=== PATIENT | female | born 1945 | race Caucasian/White ===

== ENCOUNTER 2024-11-10 10:54 | Emergency (ER) | payer OTHER, SELFPAY ==
[2024-11-10 11:06] VITALS: BP 113/60
--- NOTE | 2024-11-10 11:39 | ED.GENMED ---
History of Present Illness
General
Chief Complaint: Fainting Sensation
Source: patient
Exam Limitations: none
Time Seen by Provider: 11/10/24 11:30
History of Present Illness
History of Present Illness:
See MDM
Past History
Past History
ED Past Medical History: Arrthythmia and HTN
ED Past Surgical History: Cardiac
Social History
Tobacco: Non-smoker
Alcohol: None
Drug: None
Personal:
Employment: Employed
Phy Exam
Physical Exam
Physical Exam:
See MDM
Course
Orders/Labs/Results
Orders:
Orders
11/10/24 11:08
Electrocardiogram (*1) Urgent
Reason for Study: Syncope
11/10/24 11:09
EKG- Treatment ONCE
11/10/24 11:38
0.9% Sodium Chloride 1000 ml [Nss] 1,000 ml IV BOLUS
11/10/24 11:54
Complete Blood Count/With Diff Urgent
Comprehensive Metabolic Panel Urgent
Abnormal Lab Results
11/10/24
11:54
RBC 4.10 L 10^6/uL
(4.20-5.40)
Hct 34.9 L %
(37.0-47.0)
Absolute Lymphs (auto) 1.0 L 10^3/uL
(1.2-3.4)
Lymphocytes % 18.1 L %
(20.5-51.1)
Monocytes % 10.1 H %
(1.7-9.3)
Sodium 131 L mmol/L
(135-145)
Chloride 95 L mmol/L
(98-107)
BUN 30 H mg/dl
(7-17)
Creatinine 1.3 H mg/dL
(0.6-1.0)
Glucose 131 H mg/dl
(70-99)
Total Protein 6.1 L g/dl
(6.3-8.2)
11/10/24 11:54
11/10/24 11:54
Vital Signs
Initial and Last Documented VS:
Initial Vital Signs
Temp Pulse Resp BP Pulse Ox
98.2 F 62 16 113/60 98
11/10/24 11:06 11/10/24 11:06 11/10/24 11:06 11/10/24 11:06 11/10/24 11:06
Last Documented Vital Signs
Temp Pulse Resp BP Pulse Ox
98.2 F 62 16 113/60 98
11/10/24 11:06 11/10/24 11:06 11/10/24 11:06 11/10/24 11:06 11/10/24 11:06
MDM/Problems Addressed
Differential Diagnosis Includes:
HPI and MDM Narrative:
78-year-old female presenting for syncopal event. Patient was recently diagnosed with the flu. She has been tired and fatigued and has had multiple loose stools. Due to her fatigue, patient does acknowledge that she has not been eating or
drinking appropriately. Patient felt tired show she laid her head down and she passed out. She is feeling better but does acknowledge that she believes this is a fluid issue. She went to urgent care and was directed to the emergency department
for further evaluation. On my exam, she is clinically dry. She is in no acute distress. Heart regular rate and rhythm. No leg edema or tenderness.
EKG shows sinus rhythm. Will give IV fluids and continue to reassess
Physical exam
General: Well appearing and non-toxic
HEENT: protecting airway. Dry mucous membranes
Neck: appears supple
CV: No evidence of cyanosis. Regular rate and rhythm
Resp: No accessory muscle use
Abd: Non-distended
Extremities: No deformities. No leg edema or tenderness
Neuro: alert
Psych: Normal affect
Skin: Intact
Problems Addressed including Acute and Chronic Conditions affecting care:
1. Syncope
Acuity: acute
Prognosis: stable
Details: Likely in the setting of dehydration and orthostasis. Will give IV fluids continue to reassess. EKG shows sinus rhythm
Updates
Patient has mild elevation in BUN with a low sodium and low chloride consistent with dehydration. Patient feeling better after IV fluids
Differential Diagnosis (but not limited to): Syncope, dehydration, orthostasis, cardiac rhythm
Testing considered: Troponin but she denies chest pain or shortness of breath and EKG is nonischemic
Drug therapy (if applicable): OTC meds, please see d/c instruction regarding Rx drugs
Amount and/or Complexity of Data Reviewed
Clinical info obtained from: Patient
External data reviewed: N/A
Labs I independently reviewed (but not limited to): Mild elevated BUN
Radiology: N/A
Pulse Ox: not hypoxic
EKG independently reviewed: Sinus bradycardia, normal axis, no STEMI
Shuttle Hand: Sinus rhythm
Critical Care: N/A
Risk of Complication:
Social Determinants of health: Good social support
Discussed with other providers: N/A
Escalation of Care includes Admit/Obs: After being observed in the Emergency Department, pt stable for discharge.
Occasional wrong word or 'sound a like' substitutions may have occurred due to the inherent limitations of voice recognition software. Read the chart carefully and recognize, using context, where substitutions have occurred.
*Critical Care Note
Total Time (30-74mins, 75-104mins- exclusive of procedures): Not Applicable
ED Attending Note
-
Portions of this chart may have been created with voice recognition software.� Occasional wrong word or��sound alike� substitutions may have occurred due to the inherent limitations of voice recognition software.
Discharge Plan
Departure
Patient Disposition: Home (Routine Discharge)
Date of Disposition: 11/10/24
Time of Disposition: 14:15
Patient with high blood pressure during this ER visit?: No
Discharge Problem:
Syncope, Acute dehydration
Instructions: Dehydration in adults - ED discharge instructions
Prescriptions:
No Action
Xarelto 20 MG tablet
20 mg PO QPM
cholecalciferol (vitamin D3) 2,000 UNITS tablet
2,000 unit PO QPM
multivitamin Tablet
1 tab PO QPM
atorvastatin 20 mg Tablet
20 mg PO QPM
coenzyme Q10 [CoQ-10] 100 mg Capsule
100 mg PO QPM
losartan-hydrochlorothiazide 100-12.5 mg Tablet
1 tab PO DAILY
famotidine 20 mg Tablet
20 mg PO QPM
metoprolol succinate 25 mg Tablet Extended Release 24 Hr
25 mg PO TID
cranberry extract-vitamin C
336 mg PO BID
pantoprazole [pantoprazole] 40 mg tablet,delayed release (DR/EC)
40 mg PO BID Qty: 60 0RF
Rx Instructions:
twice a day for 30 days post procedure, then stop
Referrals:
Yesenia Ford PA [Family Provider] -
Activity Restrictions/Additional Instructions:
Please return for any worsening symptoms.
You may return at any time if you have further concerns.
Please follow up with your doctor at the first available appointment, preferably this week.
Thank you for choosing [facility].
Interventions
Interventions:
*Risk Screen - Suicide Last Done: 11/10/24 11:06
*Neglect/Abuse Screening Last Done: 11/10/24 11:06
Discharge Date and Time
Print Language: SPANISH
[2024-11-10] MEDS: NSS 1000 IV (11:58)
[2024-11-10 12:00] VITALS: BP 134/66
[2024-11-10 12:04] LABS: % Basophils 0.2 % (0-2); % Eosinophils 0.2 % (0-6); % Immature Granulocytes 0.2 % (0-0.5); % Lymphocytes 18.1 % (20.5-51.1); % Monocytes 10.1 % (1.7-9.3); % Neutrophils 71.2 % (42.2-75.2); Absolute Monocytes 0.6 10^3/uL (0.1-0.6); Absolute Neutrophils 4.1 10^3/uL (1.4-6.5); Hematocrit 34.9 % (37.0-47.0); Hemoglobin 12.2 g/dL (12.0-16.0); Mean Corpuscular Hgb 29.8 pg (27.0-31.0); Mean Corpuscular Volume 85.1 fL (81.0-99.0); Mean Platelet Volume 9.4 fL (7.4-10.4); Nucleated Red Blood Cells % 0 %; Platelet Count 198 10^3/uL (130-400); Red Cell Dist. Width 12.5 % (11.5-14.5); White Blood Cell Count 5.8 10^3/uL (4.8-10.8)
[2024-11-10 12:17] LABS: ALT (SGPT) 22 U/L (0-35); AST (SGOT) 26 U/L (14-36); Albumin 3.6 g/dl (3.5-5.0); Alkaline Phosphatase 70 U/L (38-126); Blood Urea Nitrogen 30 mg/dl (7-17); Calcium 8.8 mg/dl (8.4-10.2); Carbon Dioxide 27 mmol/L (22-30); Chloride 95 mmol/L (98-107); Glucose 131 mg/dl (70-99); Sodium 131 mmol/L (135-145); Total Bilirubin 0.4 mg/dl (0.2-1.3); Total Protein 6.1 g/dl (6.3-8.2); eGFR 42.09
[2024-11-10 14:00] VITALS: BP 129/82
== END 2024-11-10 14:29 | disposition home or self-care (01) ==
LOC: EMR 10:54
PROVIDERS: Emergency Medicine; EMERGENCY PHYSICIAN Student in an Organized Health Care Education/Training Program; FAMILY PHYSICIAN Physician Assistant
DX: E86.0 Dehydration (principal); R55 Syncope and collapse; I10 Essential (primary) hypertension
CPT/HCPCS: 96360; 99284; 80053; 85025; 93005